=== PATIENT | female | born 1970 | race Caucasian/White ===

== ENCOUNTER 2021-11-09 21:27 | Inpatient (IN) | payer BC, MEDICARE, OTHER ==
[~2021-11-09] VITALS: Ht 157.5 cm; Wt 77.8 kg
[~2021-11-09 21:27] MED LIST: MIRTAZAPINE 15 MG TAB PO SCH
[2021-11-09] MEDS ORDERED: BUPR150T12 PO (21:37)
[2021-11-09] MEDS ORDERED: MELA3TAB30 PO (21:41)
[2021-11-09] MEDS ORDERED: MIRT1TAB15 PO (21:41)
[2021-11-09] MEDS ORDERED: LEXA1TAB PO (21:41)
[2021-11-09] MEDS ORDERED: OMEP-173 PO (21:41)
[2021-11-09] MEDS ORDERED: LORA1TAB4 PO (21:41)
[2021-11-09] MEDS ORDERED: LEVO25TA5 PO (21:41)
[2021-11-09 22:31] LABS: HEMATOCRIT 40.7 % (36.0-47.0); HEMOGLOBIN 13.6 g/dl (12.0-15.5); MEAN CORPUSCULAR HEMOGLOBIN 31.1 pg (27.0-33.0); MEAN CORPUSCULAR HGB CONC 33.4 g/dl (32.0-36.5); MEAN CORPUSCULAR VOLUME 92.9 fl (80.0-96.0); PLATELET COUNT, AUTOMATED 224 10^3/uL (150-450); RED BLOOD COUNT 4.38 10^6/uL (4.00-5.40); WHITE BLOOD COUNT 12.4 10^3/uL (4.0-10.0)
[2021-11-09 23:04] LABS: RSV AMPLIFICATION NEGATIVE (NEGATIVE)
[2021-11-09 23:08] LABS: AMPHETAMINES LEVEL URINE NEGATIVE (NEGATIVE); BARBITURATES URINE NEGATIVE (NEGATIVE); BENZODIAZEPINES URINE NEGATIVE (NEGATIVE); CANNABINOIDS URINE NEGATIVE (NEGATIVE); COCAINE METABOLITE URINE NEGATIVE (NEGATIVE); METHADONE URINE NEGATIVE (NEGATIVE); OPIATES URINE NEGATIVE (NEGATIVE); PHENCYCLIDINE URINE NEGATIVE (NEGATIVE)
[2021-11-09 23:20] LABS: ACETAMINOPHEN LEVEL < 2.0 UG/ML (10.0-30.0); ALBUMIN 3.7 GM/DL (3.2-5.2); ALT/SGPT 32 U/L (12-78); BILIRUBIN,DIRECT < 0.1 MG/DL (0.0-0.2); BILIRUBIN,TOTAL 0.3 MG/DL (0.2-1.0); BLOOD UREA NITROGEN 14 MG/DL (7-18); CALCIUM LEVEL 8.8 MG/DL (8.5-10.1); CARBON DIOXIDE LEVEL 27 MEQ/L (21-32); CHLORIDE LEVEL 109 MEQ/L (98-107); CREATININE FOR GFR 0.99 MG/DL (0.55-1.30); ETHYL ALCOHOL (ETHANOL) < 0.003 % (0.000-0.010); GLOMERULAR FILTRATION RATE > 60.0 (>51); GLUCOSE, FASTING 80 MG/DL (70-100); POTASSIUM SERUM 3.7 MEQ/L (3.5-5.1); SALICYLATE LEVEL < 1.7 MG/DL (5.0-30.0); SODIUM LEVEL 141 MEQ/L (136-145); TOTAL PROTEIN 7.3 GM/DL (6.4-8.2)
[2021-11-10] MEDS ORDERED: ESCITALOPRAM OXALATE 10 MG TAB (LEXAPRO) PO ONE (00:15)
[2021-11-10] MEDS ORDERED: SYNT25TA PO (01:49)
[2021-11-10] MEDS ORDERED: BACITAB PO (01:49)
[2021-11-10] MEDS ORDERED: ATIV1TAB7 PO (01:49)
[2021-11-10] MEDS ORDERED: OMEG12003 PO (01:49)
[2021-11-10] MEDS ORDERED: BIOT1TAB PO (01:49)
[2021-11-10] MEDS ORDERED: VITMTA PO (01:49)
[2021-11-10] MEDS ORDERED: MIRT-62 PO (01:49)
[2021-11-10] MEDS ORDERED: HYDR2.5C TOP (01:49)
[2021-11-10] MEDS ORDERED: LEXA1TAB PO (01:49)
[2021-11-10] MEDS ORDERED: OMEP-173 PO (01:49)
[2021-11-10] MEDS ORDERED: TERC0.4C10 PV (01:49)
[2021-11-10] MEDS ORDERED: VITA200032 PO (01:49)
[2021-11-10] MEDS ORDERED: MELA3TAB30 PO (01:49)
[2021-11-10] MEDS ORDERED: BUPR150T12 PO (01:49)
[2021-11-10] MEDS ORDERED: HOME MED LIST COMPLETE! XX SCH (01:50)
[2021-11-10] MEDS ORDERED: LEVOTHYROXINE 25MCG TABLET (0.025MG) PO SCH (06:00)
[2021-11-10] MEDS ORDERED: buPROPion 75 MG TAB PO SCH (09:00)
[2021-11-10] MEDS ORDERED: buPROPion **XL** TABLET 150MG (WELLBUTRIN XL) PO SCH ×2 (09:00)
[2021-11-10] MEDS ORDERED: ANUSOL HC CREAM 30GM TOP PRN (15:30)
[2021-11-10] MEDS ORDERED: MAALOX 30 ML SUSP *UDC PO PRN (15:30)
[2021-11-10] MEDS ORDERED: IBUPROFEN 400MG TAB PO PRN (15:30)
[2021-11-10] MEDS ORDERED: LORazepam 0.5 MG TAB PO PRN (15:30)
[2021-11-10] MEDS ORDERED: TERCONAZOLE-7 VAGINAL CREAM PV PRN (15:30)
[2021-11-10] MEDS ORDERED: diphenhydrAMINE 25MG CAP PO PRN (15:30)
[2021-11-10] MEDS: LACTOBACILLUS ACIDOPHILUS CAP (BACID) PO SCH (18:42)
[2021-11-10] MEDS: MULTIVITAMINS/MINERALS THERAP 1 TAB PO SCH (18:42)
[2021-11-10] MEDS: NICOTINE 21MG/24HR 1 EA TRANSDERMAL TD SCH (18:43)
[2021-11-10 18:56] VITALS: BP 143/87
[2021-11-10] MEDS: OMEPRAZOLE 20MG CAP PO SCH (20:23)
[2021-11-10] MEDS: ESCITALOPRAM OXALATE 5MG TABLET (LEXAPRO) PO SCH (20:24)
[2021-11-10] MEDS: MIRTAZAPINE 15 MG TAB PO SCH (20:24)
[2021-11-11] MEDS: LEVOTHYROXINE 25MCG TABLET (0.025MG) PO SCH (05:40)
[2021-11-11] MEDS ORDERED: LEVOTHYROXINE 25MCG TABLET (0.025MG) PO SCH (06:00)
[2021-11-11] MEDS: NICOTINE 21MG/24HR 1 EA TRANSDERMAL TD SCH (08:54)
[2021-11-11] MEDS: MULTIVITAMINS/MINERALS THERAP 1 TAB PO SCH (08:55)
[2021-11-11] MEDS: LACTOBACILLUS ACIDOPHILUS CAP (BACID) PO SCH (08:55)
[2021-11-11] MEDS: buPROPion **XL** TABLET 150MG (WELLBUTRIN XL) PO SCH (08:55)
[2021-11-11] MEDS ORDERED: buPROPion 75 MG TAB PO SCH (09:00)
[2021-11-11] MEDS: LURASIDONE 20 MG TAB (LATUDA) PO SCH (17:53)
[2021-11-11 18:13] VITALS: BP 128/60
[2021-11-11] MEDS: MIRTAZAPINE 15 MG TAB PO SCH (20:01)
[2021-11-11] MEDS: OMEPRAZOLE 20MG CAP PO SCH (20:01)
[2021-11-11] MEDS: ESCITALOPRAM OXALATE 5MG TABLET (LEXAPRO) PO SCH (20:02)
[2021-11-12] MEDS: LEVOTHYROXINE 25MCG TABLET (0.025MG) PO SCH (05:57)
[2021-11-12 06:58] VITALS: BP 128/73
[2021-11-12 07:45] LABS: HEMOGLOBIN A1c 5.3 %
[2021-11-12 08:01] LABS: CHOLESTEROL RISK RATIO 4.842 (<5)
[2021-11-12] MEDS: NICOTINE 21MG/24HR 1 EA TRANSDERMAL TD SCH (08:33)
[2021-11-12] MEDS: MULTIVITAMINS/MINERALS THERAP 1 TAB PO SCH (08:34)
[2021-11-12] MEDS: buPROPion **XL** TABLET 150MG (WELLBUTRIN XL) PO SCH (08:34)
[2021-11-12] MEDS: LACTOBACILLUS ACIDOPHILUS CAP (BACID) PO SCH (08:34)
[2021-11-12] MEDS: LURASIDONE 20 MG TAB (LATUDA) PO SCH (17:58)
[2021-11-12 18:16] VITALS: BP 126/69
[2021-11-12] MEDS: ESCITALOPRAM OXALATE 5MG TABLET (LEXAPRO) PO SCH (20:15)
[2021-11-12] MEDS: OMEPRAZOLE 20MG CAP PO SCH (20:15)
[2021-11-12] MEDS: MIRTAZAPINE 15 MG TAB PO SCH (20:15)
[2021-11-12] MEDS: traZODone 50 MG TAB PO PRN (20:15)
[2021-11-13] MEDS: LEVOTHYROXINE 25MCG TABLET (0.025MG) PO SCH (06:05)
[2021-11-13 06:20] VITALS: BP 120/63
[2021-11-13] MEDS: LACTOBACILLUS ACIDOPHILUS CAP (BACID) PO SCH (08:22)
[2021-11-13] MEDS: buPROPion **XL** TABLET 150MG (WELLBUTRIN XL) PO SCH (08:22)
[2021-11-13] MEDS: MULTIVITAMINS/MINERALS THERAP 1 TAB PO SCH (08:22)
[2021-11-13 16:18] VITALS: BP 135/63
[2021-11-13] MEDS: LURASIDONE 20 MG TAB (LATUDA) PO SCH (18:32)
[2021-11-13] MEDS: ESCITALOPRAM OXALATE 5MG TABLET (LEXAPRO) PO SCH (21:33)
[2021-11-13] MEDS: OMEPRAZOLE 20MG CAP PO SCH (21:33)
[2021-11-13] MEDS: MIRTAZAPINE 15 MG TAB PO SCH (21:33)
[2021-11-13] MEDS: traZODone 50 MG TAB PO PRN (22:24)
[2021-11-14] MEDS: LEVOTHYROXINE 25MCG TABLET (0.025MG) PO SCH (05:50)
[2021-11-14 06:44] VITALS: BP 119/70
[2021-11-14] MEDS: LACTOBACILLUS ACIDOPHILUS CAP (BACID) PO SCH (08:36)
[2021-11-14] MEDS: buPROPion **XL** TABLET 150MG (WELLBUTRIN XL) PO SCH (08:37)
[2021-11-14] MEDS: MULTIVITAMINS/MINERALS THERAP 1 TAB PO SCH (08:37)
[2021-11-14] MEDS ORDERED: ESCITALOPRAM OXALATE 10 MG TAB (LEXAPRO) PO SCH (09:00)
[2021-11-14] MEDS ORDERED: FLUBLOK(EGG FREE)(QUAD)INFLUENZA VACC 0.5ML SYRINGE 18YRS & OLDER IM.IMMUN ONE (12:00)
[2021-11-14 16:27] VITALS: BP 130/63
[2021-11-14] MEDS: LURASIDONE 20 MG TAB (LATUDA) PO SCH (18:18)
[2021-11-14] MEDS: traZODone 50 MG TAB PO PRN (21:34)
[2021-11-14] MEDS: ESCITALOPRAM OXALATE 10 MG TAB (LEXAPRO) PO SCH (21:34)
[2021-11-14] MEDS: MIRTAZAPINE 15 MG TAB PO SCH (21:34)
[2021-11-14] MEDS: OMEPRAZOLE 20MG CAP PO SCH (21:34)
[2021-11-15] MEDS: LEVOTHYROXINE 25MCG TABLET (0.025MG) PO SCH (06:07)
[2021-11-15 06:43] VITALS: BP 109/57
[2021-11-15] MEDS: buPROPion **XL** TABLET 150MG (WELLBUTRIN XL) PO SCH (08:45)
[2021-11-15] MEDS: MULTIVITAMINS/MINERALS THERAP 1 TAB PO SCH (08:45)
[2021-11-15] MEDS: LACTOBACILLUS ACIDOPHILUS CAP (BACID) PO SCH (08:45)
[2021-11-15] MEDS: MOM 30ML SUSPENSION UDC PO PRN (12:19)
[2021-11-15 16:40] VITALS: BP 116/57
[2021-11-15] MEDS: LURASIDONE 20 MG TAB (LATUDA) PO SCH (17:37)
[2021-11-15] MEDS: OMEPRAZOLE 20MG CAP PO SCH (21:26)
[2021-11-15] MEDS: ESCITALOPRAM OXALATE 10 MG TAB (LEXAPRO) PO SCH (21:26)
[2021-11-15] MEDS: traZODone 50 MG TAB PO PRN (21:26)
[2021-11-15] MEDS: MIRTAZAPINE 15 MG TAB PO SCH (21:26)
[2021-11-16] MEDS: LEVOTHYROXINE 25MCG TABLET (0.025MG) PO SCH (05:56)
[2021-11-16 06:44] VITALS: BP 114/69
[2021-11-16] MEDS: LACTOBACILLUS ACIDOPHILUS CAP (BACID) PO SCH (08:29)
[2021-11-16] MEDS: MULTIVITAMINS/MINERALS THERAP 1 TAB PO SCH (08:29)
[2021-11-16] MEDS: buPROPion **XL** TABLET 150MG (WELLBUTRIN XL) PO SCH (08:29)
[2021-11-16] MEDS: LURASIDONE 20 MG TAB (LATUDA) PO SCH (18:10)
[2021-11-16 18:25] VITALS: BP 142/74
[2021-11-16] MEDS: OMEPRAZOLE 20MG CAP PO SCH (21:00)
[2021-11-16] MEDS: traZODone 50 MG TAB PO PRN (21:00)
[2021-11-16] MEDS: MIRTAZAPINE 15 MG TAB PO SCH (21:00)
[2021-11-16] MEDS: ESCITALOPRAM OXALATE 10 MG TAB (LEXAPRO) PO SCH (21:00)
[2021-11-17] MEDS: LEVOTHYROXINE 25MCG TABLET (0.025MG) PO SCH (05:56)
[2021-11-17 06:36] VITALS: BP 117/56
[2021-11-17] MEDS: MULTIVITAMINS/MINERALS THERAP 1 TAB PO SCH (09:39)
[2021-11-17] MEDS: buPROPion **XL** TABLET 150MG (WELLBUTRIN XL) PO SCH (09:39)
[2021-11-17] MEDS: LACTOBACILLUS ACIDOPHILUS CAP (BACID) PO SCH (09:39)
[2021-11-17 18:00] VITALS: BP 152/74
[2021-11-17] MEDS: LURASIDONE 20 MG TAB (LATUDA) PO SCH (18:07)
[2021-11-17] MEDS: OMEPRAZOLE 20MG CAP PO SCH (21:13)
[2021-11-17] MEDS: MIRTAZAPINE 15 MG TAB PO SCH (21:13)
[2021-11-17] MEDS: ESCITALOPRAM OXALATE 10 MG TAB (LEXAPRO) PO SCH (21:13)
[2021-11-17] MEDS: traZODone 50 MG TAB PO PRN (21:13)
[2021-11-18] MEDS: LEVOTHYROXINE 25MCG TABLET (0.025MG) PO SCH (05:35)
[2021-11-18 06:36] VITALS: BP 102/59
[2021-11-18] MEDS: LACTOBACILLUS ACIDOPHILUS CAP (BACID) PO SCH (08:22)
[2021-11-18] MEDS: buPROPion **XL** TABLET 150MG (WELLBUTRIN XL) PO SCH (08:22)
[2021-11-18] MEDS: MULTIVITAMINS/MINERALS THERAP 1 TAB PO SCH (08:22)
[2021-11-18] MEDS: MOM 30ML SUSPENSION UDC PO PRN (12:42)
[2021-11-18 16:54] VITALS: BP 131/84
[2021-11-18] MEDS: LURASIDONE 20 MG TAB (LATUDA) PO SCH (18:01)
[2021-11-18] MEDS: MIRTAZAPINE 15 MG TAB PO SCH (20:25)
[2021-11-18] MEDS: OMEPRAZOLE 20MG CAP PO SCH (20:25)
[2021-11-18] MEDS: ESCITALOPRAM OXALATE 10 MG TAB (LEXAPRO) PO SCH (20:26)
[2021-11-18 20:32] VITALS: BP 118/72
[2021-11-19] MEDS: LEVOTHYROXINE 25MCG TABLET (0.025MG) PO SCH (05:42)
[2021-11-19 06:47] VITALS: BP 122/61
[2021-11-19] MEDS: MULTIVITAMINS/MINERALS THERAP 1 TAB PO SCH (09:41)
[2021-11-19] MEDS: buPROPion **XL** TABLET 150MG (WELLBUTRIN XL) PO SCH (09:41)
[2021-11-19] MEDS: LACTOBACILLUS ACIDOPHILUS CAP (BACID) PO SCH (09:41)
[2021-11-19 16:33] VITALS: BP 136/88
[2021-11-19] MEDS: LURASIDONE 20 MG TAB (LATUDA) PO SCH (18:02)
[2021-11-19] MEDS: MIRTAZAPINE 15 MG TAB PO SCH (20:36)
[2021-11-19] MEDS: ESCITALOPRAM OXALATE 10 MG TAB (LEXAPRO) PO SCH (20:36)
[2021-11-19] MEDS: traZODone 50 MG TAB PO PRN (20:36)
[2021-11-19] MEDS: OMEPRAZOLE 20MG CAP PO SCH (20:36)
[2021-11-20] MEDS: LEVOTHYROXINE 25MCG TABLET (0.025MG) PO SCH (06:01)
[2021-11-20 06:56] VITALS: BP 121/4
[2021-11-20] MEDS: LACTOBACILLUS ACIDOPHILUS CAP (BACID) PO SCH (08:02)
[2021-11-20] MEDS: buPROPion **XL** TABLET 150MG (WELLBUTRIN XL) PO SCH (08:02)
[2021-11-20] MEDS: MULTIVITAMINS/MINERALS THERAP 1 TAB PO SCH (08:02)
[2021-11-20] MEDS: LURASIDONE HCL 40MG TAB (LATUDA) PO SCH (17:29)
[2021-11-20 18:00] VITALS: BP 125/75
[2021-11-20] MEDS: ESCITALOPRAM OXALATE 10 MG TAB (LEXAPRO) PO SCH (20:19)
[2021-11-20] MEDS: MIRTAZAPINE 15 MG TAB PO SCH (20:19)
[2021-11-20] MEDS: traZODone 50 MG TAB PO PRN (20:19)
[2021-11-20] MEDS: OMEPRAZOLE 20MG CAP PO SCH (20:19)
[2021-11-21] MEDS: LEVOTHYROXINE 25MCG TABLET (0.025MG) PO SCH (05:39)
[2021-11-21 06:20] VITALS: BP 114/62
[2021-11-21] MEDS: MULTIVITAMINS/MINERALS THERAP 1 TAB PO SCH (08:11)
[2021-11-21] MEDS: LACTOBACILLUS ACIDOPHILUS CAP (BACID) PO SCH (08:11)
[2021-11-21] MEDS: buPROPion **XL** TABLET 150MG (WELLBUTRIN XL) PO SCH (08:11)
[2021-11-21] MEDS: LURASIDONE HCL 40MG TAB (LATUDA) PO SCH (17:58)
[2021-11-21 18:48] VITALS: BP 113/62
[2021-11-21] MEDS: MIRTAZAPINE 15 MG TAB PO SCH (20:45)
[2021-11-21] MEDS: OMEPRAZOLE 20MG CAP PO SCH (20:45)
[2021-11-21] MEDS: ESCITALOPRAM OXALATE 10 MG TAB (LEXAPRO) PO SCH (20:45)
[2021-11-21] MEDS: traZODone 50 MG TAB PO PRN (20:45)
[2021-11-22] MEDS: LEVOTHYROXINE 25MCG TABLET (0.025MG) PO SCH (05:55)
[2021-11-22 07:04] VITALS: BP 104/61
[2021-11-22] MEDS: MULTIVITAMINS/MINERALS THERAP 1 TAB PO SCH (09:11)
[2021-11-22] MEDS: buPROPion **XL** TABLET 150MG (WELLBUTRIN XL) PO SCH (09:11)
[2021-11-22] MEDS: LACTOBACILLUS ACIDOPHILUS CAP (BACID) PO SCH (09:11)
[2021-11-22] MEDS: LURASIDONE HCL 40MG TAB (LATUDA) PO SCH (17:59)
[2021-11-22 18:30] VITALS: BP 115/59
[2021-11-22] MEDS: MIRTAZAPINE 15 MG TAB PO SCH (21:13)
[2021-11-22] MEDS: traZODone 50 MG TAB PO PRN (21:13)
[2021-11-22] MEDS: OMEPRAZOLE 20MG CAP PO SCH (21:13)
[2021-11-22] MEDS: ESCITALOPRAM OXALATE 10 MG TAB (LEXAPRO) PO SCH (21:13)
[2021-11-23] MEDS: LEVOTHYROXINE 25MCG TABLET (0.025MG) PO SCH (05:44)
[2021-11-23 06:50] VITALS: BP 123/59
[2021-11-23] MEDS ORDERED: LATU40TA2 PO (09:43)
[2021-11-23] MEDS ORDERED: MIRT-62 PO (09:43)
[2021-11-23] MEDS ORDERED: BUPR150T12 PO (09:43)
[2021-11-23] MEDS ORDERED: TRAZ-252 PO (09:43)
[2021-11-23] MEDS ORDERED: LEXA1TAB PO (09:43)
[2021-11-23] MEDS: MULTIVITAMINS/MINERALS THERAP 1 TAB PO SCH (09:47)
[2021-11-23] MEDS: LACTOBACILLUS ACIDOPHILUS CAP (BACID) PO SCH (09:47)
[2021-11-23] MEDS: buPROPion **XL** TABLET 150MG (WELLBUTRIN XL) PO SCH (09:47)
== END 2021-11-23 12:35 | disposition home or self-care (01) | DRG 885 ==
LOC: M ED 21:27 → M PSY 11-10 18:10
PROVIDERS: ADMIT Psychiatry & Neurology Psychiatry; ATTEND Psychiatry & Neurology Psychiatry
DX: F31.81 Bipolar II disorder (principal); F43.10 Post-traumatic stress disorder, unspecified; E03.9 Hypothyroidism, unspecified; K21.9 Gastro-esophageal reflux disease without esophagitis; K44.9 Diaphragmatic hernia without obstruction or gangrene; K43.2 Incisional hernia without obstruction or gangrene; Z79.890 Hormone replacement therapy; Z62.810 Personal history of physical and sexual abuse in childhood; Z62.811 Personal history of psychological abuse in childhood; Z79.899 Other long term (current) drug therapy; Z88.1 Allergy status to other antibiotic agents; Z90.49 Acquired absence of other specified parts of digestive tract